=== PATIENT | female | born 1945 | race Caucasian/White ===

== ENCOUNTER 2016-08-23 09:44 | Inpatient (IN) ==
[2016-08-23] MEDS ORDERED: CeFAZolin Pre 2,000 MG/100 ML 2,000 MG/100 ML BAG IVPB ONE (10:04)
[2016-08-23] MEDS ORDERED: Albuterol 2.5 MG/3 ML NEBULIZER IH ONE (10:04)
[2016-08-23] MEDS ORDERED: Vancomycin 1,250 MG in D5% in Water 250 ML IVPB ONE (10:04)
[2016-08-23] MEDS ORDERED: Ringers Solution, Lactated 1,000 ML IVC SCH (10:15)
--- NOTE | 2016-08-23 10:45 | Anesthesia Evaluation PreOp ---
Date of Encounter: 08/23/16 Time of Encounter: 10:42 - Past History Planned Operation: endo AAA Cardiac History: NV (prior NV suggested on stress test), HTN, Other (has TAA and AAA. Poor functional capacity <4 METS) Pulmonary History: Smoker, COPD (on home oxygen) PULMONOLOGIST INTENSIVIST History: Denies Any Significant HX Other Medical History: Renal (CRI) Anesthesia History: No Prior Anesthetic Complications, Past Anesthesia (TOMY) : No Alcohol Use: none Drug use: none Medications and Allergies Allopurinol [Zyloprim 300 MG] 300 mg PO DAILY 08/23/16 [History] Aspirin 81 mg PO DAILY 08/23/16 [History] Calcium Carbonate [Calcium] 500 mg PO DAILY 08/23/16 [History] Cholecalciferol (D-3) [Vitamin D] 1,000 unit PO DAILY 08/23/16 [History] Duloxetine [Cymbalta] 20 mg PO DAILY 08/23/16 [History] Fluticasone Propionate Nasal [Flonase] 1 spr NS DAILY 08/23/16 [History] Furosemide [Lasix] 20 mg PO DAILY 08/23/16 [History] Levocetirizine Dihydrochloride [Xyzal] 5 mg PO HS 08/23/16 [History] Linaclotide [Linzess] 145 mcg PO DAILY 08/23/16 [History] Lisinopril 2.5 mg PO DAILY 08/23/16 [History] Metoprolol [Lopressor] 25 mg PO BID 08/23/16 [History] Multivit-Minerals/Folic/Ginkgo [One Daily For Women 50+ Adv Tb] 1 each PO DAILY 08/23/16 [History] Pravastatin Sodium [Pravachol] 20 mg PO HS 08/23/16 [History] Allergies No Known Allergies Allergy (Verified 08/23/16 10:27) - Meds/Allergy Pre-op Review Medications Reviewed: Yes Allergies Reviewed: Yes Beta Blockers on Current Med List: Yes If Beta Blockers taken, Date/Time (Last Dose taken): today at 0530 Anesthesia Results - Labs Laboratory Tests 08/21/16 08/21/16 08/21/16 14:56 14:56 14:56 Hgb 13.1 Hct 41.1 Plt Count 241 PT 11.3 INR 1.0 APTT 35.1 Sodium 139 Potassium 4.2 BUN 36 H Creatinine 1.57 H - Imaging EKG: report reviewed (sinus edgar, old inferior NV.) Additional studies: nuclear stress shows EF64%, no to minimal ischemia. Patient cleared by Cardiology. Anesthesia Exam Selected Entries 08/23/16 10:13 Temperature 98.0 F Pulse Rate 83 Respiratory Rate 18 Blood Pressure 130/84 O2 Sat by Pulse Oximetry 97 Height: 68in Weight: 179lbs NPO (# of Hours): 8 Pain Scale: 0 Pain Scale Used: Numeric (1 - 10) - HEENT Pupil (Motor): EOMI Mallampati: II Teeth: Edentulous Oral Opening: Greater than 3 - PULMONOLOGIST INTENSIVIST LOC: Oriented PULMONOLOGIST INTENSIVIST Motor: Normal RUE, Normal LUE, Normal RLE, Normal LLE, Normal Face PULMONOLOGIST INTENSIVIST Sensory: Normal: RUE, LUE, RLE, LLE, Face - Cardiac Rhythm: Regular Murmur: None - Pulmonary Breath Sounds: bilateral Clear Respiratory Effort: Symmetrical Anesthesia Assess/Plan ASA Score: 4 Modified [place] Scale for Level of Consciousness: Cooperative, oriented, and tranquil Anesthetic Plan: General Monitoring Plan: Standard Monitors, A-Line Recovery Plan: ICU (Discussed her high risk status due to multiple medical issues. She is aware of risks including but not limited to prolonged intubation , worsening renal function, NV, CVA and need for open procedure. Patient aware she may need ICU and/or blood products. Patient aware she needs arterial line and associated risks. Agrees to proceed.)
[2016-08-23] MEDS ORDERED: *HR* FentaNYL (PF) 100 MCG/2 ML VIAL ONE ×2 (11:26→15:44)
[2016-08-23] MEDS ORDERED: *HR* Phenylephrine 10 MG/ML VIAL ONE (11:27)
[2016-08-23] MEDS ORDERED: *HR* Propofol 200 MG/20 ML VIAL IVP ONE (11:27)
[2016-08-23] MEDS ORDERED: *HR* Rocuronium Bromide 50 MG/5 ML VIAL ONE ×2 (11:27→13:23)
[2016-08-23] MEDS ORDERED: Ondansetron 4 MG/2 ML VIAL ONE (11:27)
[2016-08-23] MEDS ORDERED: *HR* Midazolam HCl 2 MG/2 ML VIAL ONE (11:27)
[2016-08-23] MEDS ORDERED: Lidocaine -MPF 2% 2 ML VIAL ONE ×2 (11:27→12:30)
[2016-08-23] MEDS ORDERED: Dexamethasone 4 MG/ML VIAL ONE (11:27)
[2016-08-23] MEDS ORDERED: *HR* Metoprolol 5 MG/5 ML VIAL IVP PRN (11:41)
[2016-08-23] MEDS ORDERED: *HR* HYDROmorphone (PF) 1 MG/ML SYRINGE IVP PRN (11:41)
[2016-08-23] MEDS ORDERED: *HR* Promethazine 25 MG/ML VIAL IVP PRN ×2 (11:41→16:49)
[2016-08-23] MEDS ORDERED: Heparin 1,000 UNITS/500 mL NS 0 ML ONE (11:44)
--- NOTE | 2016-08-23 12:21 | History & Physical Report ---
Date of Encounter: 08/23/16 Time of Encounter: 12:15 24 Hour HP Update - Instructions Instructions: If the History and Physical is less than 30 days old and was completed prior to A.M. admission and or procedure and has NOT been updated on calendar day of procedure please complete this update prior to performing procedure. - Update Patient reports changes in Medical Condition: No Changes in assessment/condition: No Changes in Medication: No Preop tests/diagnostics Reviewed: Yes Surgery Remains Indicated: Yes Consent for Planned Operative Procedure(s) Verified: Yes - Pre-Operative Checklist Preoperative Checklist Indicated: Yes Prophylactic Antibiotic Ordered: Yes (Vancomycin due to MRSA risk) Home Medications Include Beta Taisha: Yes Beta Taisha Taken Today (Day of Surgery): Yes Beta Taisha Taken Yesterday (Day Prior to Surgery): Yes Is VTE Prophylaxis Indicated?: Yes
[2016-08-23] MEDS ORDERED: Vancomycin 1,000 MG VIAL ONE (12:23)
[2016-08-23] MEDS ORDERED: SODIUM CHLORIDE ONE (12:23)
[2016-08-23] MEDS ORDERED: HEPARIN 1000 UNIT/500 ML ONE (12:23)
[2016-08-23] MEDS ORDERED: *HR* Heparin 5,000 UNIT/ML VIAL ONE ×2 (13:56→14:12)
[2016-08-23] MEDS ORDERED: Neostigmine Methylsulfate 3 MG/3 ML SYRINGE ONE (15:38)
[2016-08-23] MEDS ORDERED: Esmolol 100 MG/10 ML VIAL IVP ONE (15:46)
--- NOTE | 2016-08-23 16:14 | Operative Note ---
Date of procedure: 08/23/16 Pre-op diagnosis: 5.5cm Abdominal aortic aneurysm Post-op diagnosis: same Procedure: 1. Introduction of catheter into the aorta via right common femoral artery. 2. Introduction of catheter into the aorta via left common femoral artery. 3. Right femoral vessel exposure for endograft placement. 4. Left femoral vessel exposure for endograft placement. 5. Endograft repair of abdominal aortic aneurysm with Cook Zenith graft and two docking limbs including radiologic supervision and interpretation. Complications: None Anesthesia: JESUS Surgeon: Oscar Martinez Window Installation Subcontractor: Julio Bennett Estimated blood loss (cc): 100 Urine output (cc): 400 Condition: stable Disposition: PACU Procedure in Detail: Indications: The patient is a 71 year old female with multiple medical comorbidities who was found to have a 5.5cm infrarenal aortic aneurysm. It had a significant increase in size and repair was recommended. Procedure: The patient was identified, brought to the operating room and placed in the supine position on the operating room table. After induction of general endotracheal anesthesia, the patient was cleaned and draped in normal sterile fashion. Oblique incisions were made over both groins sharply. Hemostasis was obtained with electrocautery. Using blunt and sharp and electrocautery dissection, the bilateral common, deep and superficial femoral arteries were dissected circumferentially and surrounded with Vesseloops. At this point, the patient received 5000 units of heparin intravenously and then bilateral femoral punctures with large-bore needles were performed. Bentson wires were advanced into the aorta under fluoroscopic view. Given the anatomy, the main body was selected to be the left side of the patient. The needles were exchanged for bilateral #8-Congolese sheaths and a long Pigtail catheter was advanced over the left wire into the aortic arch. The wire was replaced with a Lunderquist wire. The catheter was removed and repositioned in the suprarenal aorta via the left femoral artery. The main body was inserted over the Lunderquist wire with the contralateral limb being in the anterolateral position. An aortogram was then performed at the level of the renal artery. The graft was positioned just inferior to the renal arteries and the first 2 segments were deployed. Again an aortogram revealed adequate infrarenal placement. The graft was then further opened to the contralateral limb exposed. A final angiogram was performed confirming adequate infrarenal placement. The suprarenal stent was deployed in the usual fashion. The contralateral limb was then selected with a Bentson wire using a guiding catheter. Intragraft placement of the wire was confirmed by placing the pigtail and spinning it freely as well as injecting a small amount of contrast. An oblique view of the pelvis was performed with contrast to size the right extension limb. The #8-Congolese sheath was removed and exchanged for the appropriate limb, which was advanced under fluoroscopic view and positioned. It was then expanded. The introducer was removed. The remaining portion of the main body was deployed, the top cap was retrieved and the introducer was removed. An oblique view of the right pelvis was performed in a similar fashion to determine the length of the graft on the left. The graft extension was then advanced on the right and positioned in the usual fashion. Upon completion of the graft docking limb extension, the introducer was removed. A Coda balloon was then advanced into the graft proximal and distal endpoints as well as overlap were expanded with gentle pressure. The balloon was left in the suprarenal position and a Flush catheter was placed in the suprarenal aorta. A Flush completion angiogram revealed an late endoleak arising at the level of the birfurcation. The left extensino limb was then reinflated using the Coda balloon. A retrograde angiogram revealed no retrograde endoleak at abrahan left limb. Tension was applied to the Vesseloops in the groin. The bilateral sheaths were then removed. After confirming hemodynamic stability, the wires were then removed. The bilateral arteriotomies were repaired with a running 6-0 Prolene. Antibiotic irrigation was infused into the groin. Platelet rich and platelet poor plasma were infused into the incisions. The bilateral groins were closed with a single layer of 2-0 Vicryl followed by two layers of 3-0 Vicryl followed by a layer of 3-0 monocryl in the subcuticular region. Sterile dressings were applied. The patient was then extubated and taken to the recovery room in stable condition. DEVICE SIZES: 1. Main body, 30 x 111. 2. Contralateral leg, 24 x 56. 3. Ipsilateral leg, 24 x 74.
--- NOTE | 2016-08-23 16:37 | Anesthesia Evaluation Post Op ---
Date of Encounter: 08/23/16 Time of Encounter: 16:36 - Vital Signs Vital Signs: Vital Signs/O2 Sat, Most Current Temp Pulse Resp BP Pulse Ox 97.8 F 78 14 141/85 91 L 08/23/16 16:12 08/23/16 16:32 08/23/16 16:32 08/23/16 16:22 08/23/16 16:32 - Lungs Lungs: Clear Ascult./Percussion - Airway Airway: Non-obstructed - Cardiovascular Regular Rate - Mental Status Mental Status: Alert & Oriented, Answers Appropriately - Pain Pain Scale: 2 Pain Scale used: Numeric (1 - 10) - Nausea Vomiting Nausea Vomiting: Not Present - Hydration Hydration: Ice chips, [place] catheter - Discharge PostOp Status: Transfer Patient to floor
[2016-08-23] MEDS ORDERED: *HR* Labetalol 20 MG/4 ML SYRINGE IVP PRN (16:49)
[2016-08-23] MEDS ORDERED: 0.9 % Sodium Chloride 1,500 ML IVC SCH (16:49)
[2016-08-23] MEDS ORDERED: Naloxone 0.4 MG/ML INJ IVP PRN ×2 (16:49)
[2016-08-23] MEDS ORDERED: *HR* HYDROcodone/Acet 5/325 mg TABLET PO PRN (16:49)
[2016-08-23] MEDS ORDERED: Acetaminophen 325 MG TABLET PO PRN (16:49)
[2016-08-23] MEDS: *HR* Morphine 2 MG/ML SYRINGE IVP PRN ×2 (17:01→20:53)
[2016-08-23] MEDS: *HR* OxyCODONE Immed Rel 5 MG TABLET PO PRN ×2 (17:16→20:53)
[2016-08-23] MEDS: Ondansetron 4 MG/2 ML VIAL IVP PRN (17:17)
[2016-08-23] MEDS: *HR* Metoprolol 5 MG/5 ML VIAL IVP SCH (18:17)
[2016-08-23] MEDS: CeFAZolin Pre 2,000 MG/100 ML 2,000 MG/100 ML BAG IVPB SCH (18:34)
[2016-08-23] MEDS ORDERED: Loratadine 10 MG TABLET PO SCH (21:00)
--- NOTE | 2016-08-23 21:43 | Operative Note ---
Date of procedure: 08/23/16 Pre-op diagnosis: AAA Post-op diagnosis: same Procedure: Endovascular repair of infrarenal abdominal aortic aneurysm using modular bifurcated prosthesis (2 docking limbs-Cook Zenith system) Open femoral exposure, bilaterally. Nonselective catheterizations of the aorta with multiple aortograms. Anesthesia: GETA Surgeon: Oscar Martinez Co-Surgeon: Julio Bennett Estimated blood loss (cc): 100 Specimen: None Condition: stable Disposition: PACU Procedure in Detail: Ritika Guzman is a 71-year-old white female with a abdominal aortic aneurysm. Patient's aneurysm also has led to significant tortuosity of the abdominal aorta. The patient now comes for endovascular repair of this lesion. Procedure After informed consent the patient was taken from the holding area to the operating room. General endotracheal anesthesia was established. The abdomen, groins, and upper thighs were sterilely prepped and draped. A timeout protocol was observed. A 2 team approach was utilized for this procedure due to the patient's comorbid conditions. It was also needed because of intraoperative complex decision making and the need to minimize complications due to blood loss and prolonged anesthetic time. The femoral arteries were then dissected simultaneously and exposed and controlled with vessel loops. An 18-gauge needle was used on both sides to puncture the artery retrograde. A guidewire was then inserted and this was followed by an 8 [place]ian sheath and dilator. The dilator was removed and the sheath was aspirated and flushed. Systemic heparinization was then achieved using intravenous heparin. The guidewires were then manipulated under fluoroscopic control into the proximal descending thoracic aorta. It was elected to perform this procedure with the main body via the left side. Guidewires were then inserted and exchanged for a Lunderquist wire bilaterally. The pigtail catheter was placed via the right side in the main body was placed via the left side. An aortogram was obtained to identify the renal artery orifices. The patient had significant tortuosity though this was significantly improved with the use of the stiff wires. The graft was partially deployed and then another angiogram obtained in order to ensure that the renal artery orifices were preserved. With this done the suprarenal fixation was achieved and the main body was deployed so that the docking limb to the right side was now exposed. Attention was then directed to the right side. A wire was then selectively cannulated into the right limb. Appropriate position of the wire was confirmed by the use of contrast injection. With this done the right iliac limb was selected and this was a 24 x 56 mm Spiral Z limb. This was deployed into the right limb and into the right distal common iliac artery with preservation of the right iliac bifurcation. With this accomplished attention was then directed back towards the main body on the left side. The top cap was then recaptured and the left-sided main body was completely deployed. A repeat anterior was entered obtained of the aorta and left iliac system. A 24 x 74 mm Spiral Z Limb was then identified as the appropriate conduit to place into the left iliac system. This device was then deployed with maximal proximal stent overlap. There was also overlap of the left iliac bifurcation but the internal iliac artery remained patent. A Coda balloon was then placed into the stent graft first from the left side done from the right. This was gently inflated so that the stent graft was fully deployed at its fixation sites and overlap sites of the stent grafts. The guidewire was then used and a pigtail catheter was advanced over the wire and placed into the supra renal aorta. A completion aortogram was then obtained. This demonstrated a probable late Type 2 endoleak near the flow divider. With all other aspects satisfactory the wires and catheters were removed. The femoral puncture sites were closed using 6-0 Prolene suture. After appropriate backbleeding and flushing the limbs are open. The patient had no hemodynamic distress with this maneuver. Excellent pulsations and Doppler signals were identified. They groin wounds were then copiously irrigated with antibiotic containing solution and hemostasis was achieved. The wounds were closed in layers using absorbable suture. Dry sterile dressings were then applied. The patient was extubated in the operating room and taken to the recovery room in stable condition.
[2016-08-24] MEDS: CeFAZolin Pre 2,000 MG/100 ML 2,000 MG/100 ML BAG IVPB SCH (05:12)
[2016-08-24] MEDS: *HR* Morphine 2 MG/ML SYRINGE IVP PRN (05:13)
[2016-08-24] MEDS: *HR* Metoprolol 5 MG/5 ML VIAL IVP SCH ×2 (05:24)
[2016-08-24 05:31] LABS: Basophils % 0.1 %; Hematocrit 33.8 % (35.3-44.9); Immature Granulocytes % 0.4 % (0-4); Lymphocytes # 1.5 K/mcL (0.6-4.6); Mean Corpuscular HGB Conc 31.4 g/dL (31.6-35.5); Mean Corpuscular Hemoglobin 31.3 pg (28.0-33.3); Mean Corpuscular Volume 99.7 fL (83.0-100.0); Mean Platelet Volume 9.4 fL (9.4-12.4); Monocytes # 0.6 K/mcL (0.0-1.3); Monocytes % 6.6 %; Neutrophils # 6.4 K/mcL (1.6-8.9); Platelet Count 183 K/mcL (140-400); Red Blood Count 3.39 M/mcL (3.82-4.97); Red Cell Distribution Width 12.9 % (11.5-14.5); Segmented Neutrophils % 74.9 %
[2016-08-24 05:32] LABS: Hemoglobin 10.6 g/dL (11.5-15.4)
[2016-08-24 05:43] LABS: Calcium 8.3 mg/dL (8.6-10.8); Potassium 4.2 mEq/L (3.5-4.5)
[2016-08-24] MEDS ORDERED: *HR* Heparin 5,000 UNIT/ML VIAL SQ SCH ×2 (06:00)
--- NOTE | 2016-08-24 08:04 | Discharge Summary ---
Date of Encounter: 08/24/16 Time of Encounter: 08:10 - Discharge Diagnosis (1) AAA (abdominal aortic aneurysm) without rupture Priority: Primary Status: Chronic Comments: The patient is postoperative day #1 after endograft repair of her aortic aneurysm. She is without complaints and her wounds are healing. She will be discharged today. (2) CKD (chronic kidney disease), stage III Priority: Secondary Status: Chronic Comments: Her GFR is improved from her baseline. She is making good urine. (3) Essential hypertension Priority: Secondary Status: Chronic Comments: She was counseled regarding atherosclerotic risk factor reduction. (4) Mixed hyperlipidemia Priority: Secondary Status: Chronic (5) Acute blood loss anemia Priority: Secondary Status: Acute Comments: The patient has acute expected postoperative blood loss anemia. She is hemodynamically stable without evidence of ongoing blood loss. - Discharge Medications Prescriptions: OxyCODONE Immed Rel [Roxicodone 5 MG] 5 mg PO Q4H PRN #40 tablet PRN Reason: postoperative pain Home Medications: Allopurinol [Zyloprim 300 MG] 300 mg PO DAILY 08/23/16 [History] Aspirin 81 mg PO DAILY 08/23/16 [History] Calcium Carbonate [Calcium] 500 mg PO DAILY 08/23/16 [History] Cholecalciferol (D-3) [Vitamin D] 1,000 unit PO DAILY 08/23/16 [History] Duloxetine [Cymbalta] 20 mg PO DAILY 08/23/16 [History] Fluticasone Propionate Nasal [Flonase] 1 spr NS DAILY 08/23/16 [History] Furosemide [Lasix] 20 mg PO DAILY 08/23/16 [History] Levocetirizine Dihydrochloride [Xyzal] 5 mg PO HS 08/23/16 [History] Linaclotide [Linzess] 145 mcg PO DAILY 08/23/16 [History] Lisinopril 2.5 mg PO DAILY 08/23/16 [History] Metoprolol [Lopressor] 25 mg PO BID 08/23/16 [History] Multivit-Minerals/Folic/Ginkgo [One Daily For Women 50+ Adv Tb] 1 each PO DAILY 08/23/16 [History] Pravastatin Sodium [Pravachol] 20 mg PO HS 08/23/16 [History] OxyCODONE Immed Rel [Roxicodone 5 MG] 5 mg PO Q4H PRN #40 tablet 08/24/16 [Rx] Allergies/Adverse Reactions: Allergies No Known Allergies Allergy (Verified 08/23/16 10:27) Date of admission: 08/23/16 16:47 Primary care physician: Niru Yo MD Procedure(s) Performed: Endograft repair of abdominal aortic aneurysm Discharging clinician: Oscar Martinez Anticipated date of discharge: 08/24/16 - Patient Status Disposition: Home, Self-Care Condition: Good Functional capacity at discharge: independent ambulation Overall status at discharge: patient is back to baseline - Discharge Instructions Instructions: Oxycodone, Rapid Release (By mouth), Heart Healthy Diet (DC), Peripheral Vascular Disorders (DC) Follow Up With: Oscar Martinez MD [Partnered Physician] - 09/24/16 1:00 pm Niru Yo MD [Primary Care Provider] - 08/28/16 8:20 am Additional Instructions: May remove bandages and shower on 08/25/16. Wash wounds gently and pat to dry. Apply dry gauze to wounds daily for 7 days. No tub baths or swimming until 09/12/16. Call [phone] with questions or concerns. - Diet and Activity Activity: increase activity as tolerated Diet: advance to your usual diet - Hospital Course Hospital course: Ms. Guzman is a 71 year old female has a history of an abdominal aortic aneurysm. She was admitted on 08/23/16 and underwent endograft repair of her aneurysm. She tolerated the procedure well and was discharged on postoperative day #1 without complications. - Time Spent with Patient Total time spent providing and/or coordinating discharge services: Exam Vital Signs, Last 4 Hours Temp Pulse Resp BP Pulse Ox 08/24/16 07:52 98.3 F 65 18 121/64 95 08/24/16 05:47 98.4 F 93 18 98/51 92 L 08/24/16 05:00 70 General: Present: Conversant, No Apparent Distress HEENT: Present: Pupils equal Cardiac: Present: Reg Rate and Rhythm Lungs: Present: Normal Breath Sounds Neuro: Present: Alert and responsive, No focal deficits noted Abdomen: Present: Soft, Non-tender. Absent: Masses Vascular: Present: Surgical incisions (no hematoma, clean, dry and intact). Absent: Cyanosis, Edema - VTE Documentation of Mechanical Device: Intermittent pneumatic compression device
[2016-08-24] MEDS: Ondansetron 4 MG/2 ML VIAL IVP PRN (08:25)
[2016-08-24] MEDS ORDERED: Cholecalciferol (D-3) 1,000 UNIT TABLET PO SCH (09:00)
[2016-08-24] MEDS ORDERED: Multivit/Ca/Min/Fe/FA 1 TAB TABLET PO SCH (09:00)
[2016-08-24] MEDS ORDERED: (Linaclotide [Linzess] 145 MCG) PO SCH (09:00)
[2016-08-24] MEDS ORDERED: Furosemide 20 MG TABLET PO SCH (09:00)
[2016-08-24] MEDS ORDERED: Aspirin 81 MG TAB.CHEW PO SCH (09:00)
[2016-08-24] MEDS ORDERED: Fluticasone Propionate Nasal 50 MCG/SPRAY BOTTLE NS SCH (09:00)
[2016-08-24 11:57] VITALS: BP 113/67
[2016-08-24] MEDS ORDERED: CeFAZolin Pre 2,000 MG/100 ML 2,000 MG/100 ML BAG IVPB SCH (19:00)
== END 2016-08-24 12:50 | disposition home or self-care (01) | DRG 269 ==
LOC: SAMDAY 09:44 → 2NNU 16:47
PROVIDERS: ADMIT Surgery; ATTEND Surgery

== ENCOUNTER 2020-11-16 13:24 | Inpatient (IN) ==
[2020-11-16] MEDS ORDERED: Morphine Sulfate 2 MG/ML SYRINGE IVP STA (18:24)
[2020-11-16] MEDS ORDERED: Naloxone 0.4 MG/ML INJ IVP PRN (19:29)
[2020-11-16] MEDS ORDERED: 0.9 % Sodium Chloride 1,000 ML IVC SCH (19:30)
[2020-11-16] MEDS: Acetaminophen 325 MG TABLET PO PRN (20:16)
[2020-11-16] MEDS: Nicotine 14 MG PATCH.TD24 TD SCH (20:16)
[2020-11-16] MEDS ORDERED: Morphine Sulfate 2 MG/ML SYRINGE IVP ONE (20:21)
[2020-11-16] MEDS ORDERED: Perflutren Lipid Microsphere 1.3 ML in 0.9 % Sodium Chloride 8.7 ML IVP PRN (21:04)
[2020-11-17 01:04] LABS: Basophils % 0.4 %; Hematocrit 33.8 % (35.3-44.9); Hemoglobin 10.6 g/dL (11.5-15.4); Immature Granulocytes % 0.4 % (0-4); Lymphocytes # 1.3 K/mcL (0.6-4.6); Lymphocytes % 17.2 %; Mean Corpuscular HGB Conc 31.4 g/dL (31.6-35.5); Mean Corpuscular Hemoglobin 31.6 pg (28.0-33.3); Mean Corpuscular Volume 100.9 fL (83.0-100.0); Mean Platelet Volume 10.3 fL (9.4-12.4); Monocytes # 0.6 K/mcL (0.0-1.3); Monocytes % 8.4 %; Neutrophils # 5.6 K/mcL (1.6-8.9); Platelet Count 156 K/mcL (140-400); Red Blood Count 3.35 M/mcL (3.82-4.97); Red Cell Distribution Width 13.2 % (11.5-14.5); Segmented Neutrophils % 73.6 %; White Blood Count 7.6 K/mcL (4.3-11.1)
[2020-11-17 01:11] LABS: INR 1.1; Prothrombin Time 12.3 Seconds (9.4-12.1)
[2020-11-17 01:14] LABS: Activated Partial Thrombo Time 33.1 Seconds (26.0-36.0)
[2020-11-17 01:36] LABS: Albumin 3.4 g/dL (3.5-5.7); Albumin/Globulin Ratio 1.4 (1.1-2.2); Bilirubin,Total 0.5 mg/dL (0.3-1.0); Calcium 8.1 mg/dL (8.6-10.3); Globulin 2.5 g/dL (2.4-3.5); Magnesium 1.8 mg/dL (1.6-2.6); Potassium 3.9 mEq/L (3.5-5.1); Total Protein 5.9 g/dL (6.4-8.9); Troponin I 0.04 ng/mL (< 0.04)
[2020-11-17] MEDS: Aspirin 81 MG TAB.CHEW PO SCH (08:31)
[2020-11-17] MEDS: Nicotine 14 MG PATCH.TD24 TD SCH (08:31)
[2020-11-17] MEDS: BuPROPion SR (12 HR) 150 MG TABLET PO SCH ×2 (13:10→21:07)
[2020-11-17] MEDS: carvediloL 6.25 MG TABLET PO SCH (16:38)
[2020-11-17] MEDS: Furosemide 20 MG TABLET PO SCH (16:38)
[2020-11-17] MEDS ORDERED: carvediloL 6.25 MG TABLET PO SCH (17:00)
[2020-11-17] MEDS: Budesonide/Formoterol 80/4.5 1 PUFF INH IH SCH (20:40)
[2020-11-17] MEDS: Acetaminophen 325 MG TABLET PO PRN (21:06)
[2020-11-18 01:10] LABS: Basophils % 0.4 %; Eosinophils % 0.1 %; Hematocrit 32.2 % (35.3-44.9); Hemoglobin 10.3 g/dL (11.5-15.4); Immature Granulocytes % 0.3 % (0-4); Lymphocytes % 13.3 %; Mean Corpuscular Hemoglobin 31.8 pg (28.0-33.3); Mean Corpuscular Volume 99.4 fL (83.0-100.0); Mean Platelet Volume 10.8 fL (9.4-12.4); Monocytes # 0.6 K/mcL (0.0-1.3); Monocytes % 7.9 %; Neutrophils # 5.7 K/mcL (1.6-8.9); Platelet Count 136 K/mcL (140-400); Red Blood Count 3.24 M/mcL (3.82-4.97); Red Cell Distribution Width 13.3 % (11.5-14.5); White Blood Count 7.4 K/mcL (4.3-11.1)
[2020-11-18 01:30] LABS: Calcium 8.2 mg/dL (8.6-10.3); Potassium 4.3 mEq/L (3.5-5.1)
[2020-11-18] MEDS: Nicotine 14 MG PATCH.TD24 TD SCH (07:23)
[2020-11-18] MEDS: Aspirin 81 MG TAB.CHEW PO SCH (07:27)
[2020-11-18] MEDS: BuPROPion SR (12 HR) 150 MG TABLET PO SCH ×2 (07:27→20:23)
[2020-11-18] MEDS: Multivit/Ca/Min/Fe/FA 1 TAB TABLET PO SCH (07:27)
[2020-11-18] MEDS: allopurinoL 100 MG TABLET PO SCH (07:27)
[2020-11-18] MEDS: FLUoxetine 20 MG CAPSULE PO SCH (07:28)
[2020-11-18] MEDS: Furosemide 20 MG TABLET PO SCH (07:28)
[2020-11-18] MEDS: carvediloL 6.25 MG TABLET PO SCH ×2 (07:28→17:08)
[2020-11-18] MEDS ORDERED: Lidocaine -MPF 2% 2 ML VIAL ONE (11:21)
[2020-11-18] MEDS ORDERED: *HR* FentaNYL (PF) 100 MCG/2 ML VIAL ONE (11:21)
[2020-11-18] MEDS ORDERED: Lidocaine HCL 4 ML Topical Solution (Laryng-O-Jet Kit Sterile Pak) TP ONE (11:21)
[2020-11-18] MEDS ORDERED: *HR* Propofol 200 MG/20 ML VIAL IVP ONE (11:21)
[2020-11-18] MEDS ORDERED: Heparin 1,000 UNITS/500 mL 500 ML ONE (11:21)
[2020-11-18] MEDS ORDERED: *HR* Rocuronium Bromide 50 MG/5 ML VIAL ONE (11:21)
[2020-11-18] MEDS ORDERED: *HR* Succinylcholine 200 MG/10 ML VIAL IVP ONE (11:21)
[2020-11-18] MEDS ORDERED: Ondansetron 4 MG/2 ML VIAL ONE (11:21)
[2020-11-18] MEDS ORDERED: *HR* Norepinephrine 4 MG/4 ML VIAL IVC ONE (11:28)
[2020-11-18] MEDS: Budesonide/Formoterol 80/4.5 1 PUFF INH IH SCH ×2 (11:37→22:17)
[2020-11-18] MEDS ORDERED: CeFAZolin Syr 2,000MG/20 ML 2,000 MG/20 ML SYRINGE IVPB ONE (12:24)
[2020-11-18] MEDS ORDERED: *HR* HYDROmorphone PF 0.5 MG/0.5 ML SYRINGE IVP PRN (12:26)
[2020-11-18] MEDS ORDERED: *HR* OxyCODONE Immed Rel 5 MG TABLET PO PRN (12:26)
[2020-11-18] MEDS ORDERED: Ondansetron 4 MG/2 ML VIAL IVP PRN (12:26)
[2020-11-18] MEDS ORDERED: TOTAL JOINT MIXTURE (100ML) INTRAART ONE (12:30)
[2020-11-18] MEDS ORDERED: Povidone-Iodine 45 ML, Sodium Chloride IRRigation 1,000 ML IR ONE (12:30)
[2020-11-18] MEDS ORDERED: ROPIVACAINE/PF/NS 0.25% 1 EACH SYRINGE INTRAART ONE ×2 (13:03→13:13)
[2020-11-18] MEDS ORDERED: Lidocaine 1% 20 ML MDV ONE (13:04)
[2020-11-18] MEDS ORDERED: Sugammadex Sodium 200 MG/2 ML VIAL IV ONE (14:20)
[2020-11-18] MEDS ORDERED: *HR* Etomidate 40 MG/20 ML VIAL IVP ONE (16:47)
[2020-11-19] MEDS: CeFAZolin 2 GM/120 ML BAG IVPB SCH ×2 (00:45→08:16)
[2020-11-19 01:23] LABS: Basophils % 0.2 %; Hematocrit 28.5 % (35.3-44.9); Hemoglobin 8.8 g/dL (11.5-15.4); Immature Granulocytes % 0.5 % (0-4); Lymphocytes # 1.1 K/mcL (0.6-4.6); Lymphocytes % 11.8 %; Mean Corpuscular HGB Conc 30.9 g/dL (31.6-35.5); Mean Corpuscular Hemoglobin 31.1 pg (28.0-33.3); Mean Corpuscular Volume 100.7 fL (83.0-100.0); Mean Platelet Volume 10.9 fL (9.4-12.4); Monocytes # 0.6 K/mcL (0.0-1.3); Monocytes % 7.2 %; Neutrophils # 7.1 K/mcL (1.6-8.9); Platelet Count 159 K/mcL (140-400); Red Blood Count 2.83 M/mcL (3.82-4.97); Red Cell Distribution Width 13.4 % (11.5-14.5); Segmented Neutrophils % 80.3 %; White Blood Count 8.9 K/mcL (4.3-11.1)
[2020-11-19 01:36] LABS: Uric Acid 7.7 mg/dL (2.3-7.6)
[2020-11-19 01:37] LABS: Potassium 4.3 mEq/L (3.5-5.1)
[2020-11-19 03:47] LABS: Hepatitis B Surface Antigen Nonreactive (Nonreactive)
[2020-11-19 04:16] LABS: Hepatitis B Core IgM Nonreactive (Nonreactive)
[2020-11-19 04:17] LABS: Hepatitis A Antibody IgM Nonreactive (Nonreactive)
[2020-11-19 04:18] LABS: Hepatitis C Virus Antibody Nonreactive (Nonreactive)
[2020-11-19 06:13] LABS: Bacteria,Urine Few per hpf (None-Few); Bilirubin,Urine Negative (Negative); Blood,Urine Large (Negative); Clarity,Urine Ex.Turbid (Clear); Color,Urine Yellow (Yellow); Glucose,Urine (UA) Normal (Normal); Ketones,Urine Negative (Negative); Leukocyte Esterase,Urine Large (Negative); Mucus,Urine Few per lpf (None-Few); Nitrite,Urine Negative (Negative); PH,Urine 5.5 pH Units (5.0-8.0); Protein,Urine 70 mg/dL (Neg-Trace); RBC,Urine TNTC per hpf (0-3); Renal Epithelial Cells,Urine Few per hpf (None-Few); Specific Gravity,Urine 1.018 (1.010-1.025); Squamous Epithelial Cell,Urine Few per hpf (None-Few); Urobilinogen,Urine Normal (Normal); WBC,Urine TNTC per hpf (0-3)
[2020-11-19 06:16] LABS: Protein/Creatinine Ratio,Urine 0.65 mg/mg (0.00-0.20); Sodium, Urine 31.2 mEq/L
[2020-11-19] MEDS: Multivit/Ca/Min/Fe/FA 1 TAB TABLET PO SCH (08:16)
[2020-11-19] MEDS: BuPROPion SR (12 HR) 150 MG TABLET PO SCH ×2 (08:16→21:31)
[2020-11-19] MEDS: Ondansetron 4 MG/2 ML VIAL IVP PRN ×2 (08:16→17:21)
[2020-11-19] MEDS: Aspirin 81 MG TAB.CHEW PO SCH (08:16)
[2020-11-19] MEDS: allopurinoL 100 MG TABLET PO SCH (08:16)
[2020-11-19] MEDS: FLUoxetine 20 MG CAPSULE PO SCH (08:17)
[2020-11-19] MEDS: Nicotine 14 MG PATCH.TD24 TD SCH (08:17)
[2020-11-19] MEDS: carvediloL 6.25 MG TABLET PO SCH ×2 (08:17→17:21)
[2020-11-19] MEDS: Budesonide/Formoterol 80/4.5 1 PUFF INH IH SCH ×2 (08:22→19:39)
[2020-11-19] MEDS: Furosemide 40 MG/4 ML VIAL IVP SCH ×3 (11:55→21:31)
[2020-11-19] MEDS: Albumin 25% 25gram/100mL 25 GM/100 ML IV.SOLN IVPB SCH ×2 (11:56→21:32)
[2020-11-19] MEDS ORDERED: cefTRIAXone 1,000 MG in Water for inj. (sterile) 20 ML IVP SCH (14:00)
[2020-11-19 15:46] LABS: Folate > 22.3 ng/mL (3.0-16.0); Vitamin B12 > 1500 pg/mL (250-1100)
[2020-11-19] MEDS ORDERED: Acetaminophen IV 1,000 MG/100 ML BAG IVPB ONE (22:36)
[2020-11-19] MEDS ORDERED: Prochlorperazine 10 MG/2 ML VIAL IVP PRN (22:37)
[2020-11-20 02:19] LABS: Basophils % 0.2 %; Eosinophils % 0.2 %; Hematocrit 24.3 % (35.3-44.9); Hemoglobin 7.5 g/dL (11.5-15.4); Immature Granulocytes % 0.5 % (0-4); Lymphocytes # 0.8 K/mcL (0.6-4.6); Lymphocytes % 11.7 %; Mean Corpuscular HGB Conc 30.9 g/dL (31.6-35.5); Mean Corpuscular Hemoglobin 30.7 pg (28.0-33.3); Mean Corpuscular Volume 99.6 fL (83.0-100.0); Mean Platelet Volume 10.8 fL (9.4-12.4); Monocytes # 0.6 K/mcL (0.0-1.3); Monocytes % 9.1 %; Neutrophils # 5.2 K/mcL (1.6-8.9); Platelet Count 152 K/mcL (140-400); Red Blood Count 2.44 M/mcL (3.82-4.97); Red Cell Distribution Width 13.4 % (11.5-14.5); Segmented Neutrophils % 78.3 %; White Blood Count 6.6 K/mcL (4.3-11.1)
[2020-11-20 02:37] LABS: Calcium 8.1 mg/dL (8.6-10.3); Potassium 4.5 mEq/L (3.5-5.1)
[2020-11-20 02:38] LABS: % Iron Saturation 7 % (15-50); Iron 12 mcg/dL (50-170); Transferrin 125 mg/dL (203-362)
[2020-11-20] MEDS: Furosemide 40 MG/4 ML VIAL IVP SCH (07:37)
[2020-11-20] MEDS: Furosemide 20 MG TABLET PO SCH (07:37)
[2020-11-20] MEDS: Multivit/Ca/Min/Fe/FA 1 TAB TABLET PO SCH (07:39)
[2020-11-20] MEDS: FLUoxetine 20 MG CAPSULE PO SCH (07:39)
[2020-11-20] MEDS: BuPROPion SR (12 HR) 150 MG TABLET PO SCH ×2 (07:40→21:34)
[2020-11-20] MEDS: Aspirin 81 MG TAB.CHEW PO SCH (07:40)
[2020-11-20] MEDS: allopurinoL 100 MG TABLET PO SCH (07:40)
[2020-11-20] MEDS: carvediloL 6.25 MG TABLET PO SCH ×2 (07:40→16:57)
[2020-11-20] MEDS: Albumin 25% 25gram/100mL 25 GM/100 ML IV.SOLN IVPB SCH (07:40)
[2020-11-20] MEDS: Nicotine 14 MG PATCH.TD24 TD SCH (07:41)
[2020-11-20 08:42] LABS: ABG Base Excess -2 mEq/L (-2 to 3); ABG HCO3 24 mEq/L (21-27); ABG Oxygen Saturation 94 % (95-98); ABG PCO2 46 mmHg (35-45); ABG PH 7.33 pH Units (7.32-7.45); ABG PO2 77 mmHg (85-104); ABG TCO2 25 mEq/L (20-26)
[2020-11-20] MEDS: Budesonide/Formoterol 80/4.5 1 PUFF INH IH SCH ×2 (08:47→19:56)
[2020-11-20] MEDS: Ipratropium/Albuterol Neb 3 ML IH SCH ×5 (08:49→23:30)
[2020-11-20] MEDS ORDERED: Ferumoxytol 510 MG in 0.9 % Sodium Chloride 100 ML IVPB ONE (11:17)
[2020-11-20] MEDS: Furosemide 20 MG/2 ML VIAL IVP ONE (12:16)
[2020-11-20] MEDS ORDERED: cefTRIAXone 1,000 MG in Water for inj. (sterile) 10 ML IVP SCH (14:00)
[2020-11-20 15:45] LABS: Bacteria,Urine Few per hpf (None-Few); Bilirubin,Urine Negative (Negative); Blood,Urine Small (Negative); Clarity,Urine Clear (Clear); Color,Urine Light-Yellow (Yellow); Glucose,Urine (UA) Normal (Normal); Ketones,Urine Negative (Negative); Leukocyte Esterase,Urine Small (Negative); Mucus,Urine Few per lpf (None-Few); Nitrite,Urine Negative (Negative); PH,Urine 5.5 pH Units (5.0-8.0); Protein,Urine 50 mg/dL (Neg-Trace); Specific Gravity,Urine 1.015 (1.010-1.025); Squamous Epithelial Cell,Urine Few per hpf (None-Few); Urobilinogen,Urine Normal (Normal)
[2020-11-20] MEDS: Piperacillin/Tazobactam 3.375 GM in 0.9 % Sodium Chloride Mini Bag 100 ML IVPB SCH (16:59)
[2020-11-20] MEDS ORDERED: Doxycycline 100 MG CAPSULE PO SCH (21:00)
[2020-11-21 01:00] LABS: Basophils % 0.1 %; Hematocrit 24.2 % (35.3-44.9); Hemoglobin 7.8 g/dL (11.5-15.4); Immature Granulocytes % 0.3 % (0-4); Lymphocytes # 0.6 K/mcL (0.6-4.6); Lymphocytes % 8.6 %; Mean Corpuscular HGB Conc 32.2 g/dL (31.6-35.5); Mean Corpuscular Volume 99.2 fL (83.0-100.0); Mean Platelet Volume 10.7 fL (9.4-12.4); Monocytes # 0.5 K/mcL (0.0-1.3); Monocytes % 7.7 %; Neutrophils # 5.6 K/mcL (1.6-8.9); Platelet Count 175 K/mcL (140-400); Red Blood Count 2.44 M/mcL (3.82-4.97); Red Cell Distribution Width 13.3 % (11.5-14.5); Segmented Neutrophils % 83.3 %; White Blood Count 6.7 K/mcL (4.3-11.1)
[2020-11-21 01:11] LABS: INR 1.1; Prothrombin Time 12.7 Seconds (9.4-12.1)
[2020-11-21 01:19] LABS: Calcium 8.4 mg/dL (8.6-10.3); Potassium 4.2 mEq/L (3.5-5.1)
[2020-11-21 01:30] LABS: Magnesium 2.3 mg/dL (1.6-2.6)
[2020-11-21 01:34] LABS: Troponin I 0.06 ng/mL (< 0.04)
[2020-11-21] MEDS ORDERED: Morphine Sulfate 2 MG/ML SYRINGE IVP ONE (01:49)
[2020-11-21] MEDS: Ipratropium/Albuterol Neb 3 ML IH SCH ×5 (04:00→20:07)
[2020-11-21] MEDS: Piperacillin/Tazobactam 3.375 GM in 0.9 % Sodium Chloride Mini Bag 100 ML IVPB SCH ×2 (06:13→17:56)
[2020-11-21] MEDS: Aspirin 81 MG TAB.CHEW PO SCH (09:26)
[2020-11-21] MEDS: Multivit/Ca/Min/Fe/FA 1 TAB TABLET PO SCH (09:26)
[2020-11-21] MEDS: allopurinoL 100 MG TABLET PO SCH (09:27)
[2020-11-21] MEDS: carvediloL 6.25 MG TABLET PO SCH ×2 (09:27→17:04)
[2020-11-21] MEDS: Nicotine 14 MG PATCH.TD24 TD SCH (09:27)
[2020-11-21] MEDS: BuPROPion SR (12 HR) 150 MG TABLET PO SCH ×2 (09:27→20:52)
[2020-11-21] MEDS: FLUoxetine 20 MG CAPSULE PO SCH (09:27)
[2020-11-21] MEDS: Budesonide/Formoterol 80/4.5 1 PUFF INH IH SCH ×2 (10:47→20:07)
[2020-11-21] MEDS ORDERED: 0.9 % Sodium Chloride 250 ML IVC SCH (11:30)
[2020-11-21] MEDS ORDERED: Furosemide 20 MG/2 ML VIAL IVP ONE (12:00)
[2020-11-21] MEDS ORDERED: E-Z-PAQUE (BARIUM SULF) SUSP 1 BOTTLE PO ONE (15:19)
[2020-11-21] MEDS ORDERED: E-Z-HD (BARIUM SULF) SUSPENSION PO ONE (15:19)
[2020-11-21] MEDS ORDERED: 0.9 % Sodium Chloride 250 ML ONE (16:43)
[2020-11-21] MEDS: Furosemide 20 MG/2 ML VIAL IVP ONE (17:05)
[2020-11-21] MEDS: Melatonin 3 MG TABLET PO PRN (22:55)
[2020-11-22] MEDS: Ipratropium/Albuterol Neb 3 ML IH SCH ×7 (00:22→23:28)
[2020-11-22 01:32] LABS: Basophils % 0.2 %; Eosinophils % 0.2 %; Hematocrit 27.6 % (35.3-44.9); Hemoglobin 8.6 g/dL (11.5-15.4); Immature Granulocytes % 0.3 % (0-4); Lymphocytes # 0.6 K/mcL (0.6-4.6); Mean Corpuscular HGB Conc 31.2 g/dL (31.6-35.5); Mean Corpuscular Hemoglobin 30.7 pg (28.0-33.3); Mean Corpuscular Volume 98.6 fL (83.0-100.0); Mean Platelet Volume 10.5 fL (9.4-12.4); Monocytes # 0.5 K/mcL (0.0-1.3); Monocytes % 8.4 %; Platelet Count 216 K/mcL (140-400); Red Cell Distribution Width 13.7 % (11.5-14.5); Segmented Neutrophils % 81.9 %; White Blood Count 6.1 K/mcL (4.3-11.1)
[2020-11-22 01:53] LABS: Calcium 8.6 mg/dL (8.6-10.3); Potassium 3.7 mEq/L (3.5-5.1)
[2020-11-22] MEDS: Ondansetron 4 MG/2 ML VIAL IVP PRN ×2 (02:02→09:55)
[2020-11-22] MEDS: *HR* Metoprolol 5 MG/5 ML VIAL IVP PRN (02:30)
[2020-11-22] MEDS ORDERED: Vancomycin 500 MG in 0.9 % Sodium Chloride Mini Bag 100 ML IVPB ONE (06:00)
[2020-11-22] MEDS: Piperacillin/Tazobactam 3.375 GM in 0.9 % Sodium Chloride Mini Bag 100 ML IVPB SCH ×2 (06:44→16:55)
[2020-11-22] MEDS: Budesonide/Formoterol 80/4.5 1 PUFF INH IH SCH ×2 (07:34→19:24)
[2020-11-22] MEDS: Nicotine 14 MG PATCH.TD24 TD SCH (09:56)
[2020-11-22] MEDS: allopurinoL 100 MG TABLET PO SCH (09:56)
[2020-11-22] MEDS: Multivit/Ca/Min/Fe/FA 1 TAB TABLET PO SCH (09:56)
[2020-11-22] MEDS: BuPROPion SR (12 HR) 150 MG TABLET PO SCH ×2 (09:56→20:37)
[2020-11-22] MEDS: FLUoxetine 20 MG CAPSULE PO SCH (09:56)
[2020-11-22] MEDS: Aspirin 81 MG TAB.CHEW PO SCH (09:56)
[2020-11-22] MEDS ORDERED: 0.9 % Sodium Chloride 250 ML IVC PRN (09:58)
[2020-11-22] MEDS ORDERED: 0.9 % Sodium Chloride 1,000 ML PRIME SCH (10:00)
[2020-11-22] MEDS ORDERED: Lidocaine/EPI 1:100k 1% 50 ML VIAL ONE (12:21)
[2020-11-22] MEDS ORDERED: Heparin 1,000 UNITS/500 mL 500 ML ONE (12:21)
[2020-11-22] MEDS ORDERED: *HR* Heparin 5,000 UNIT/ML VIAL ONE (12:38)
[2020-11-22] MEDS ORDERED: *HR* Heparin 10,000 UNIT/10 ML VIAL ONE (15:19)
[2020-11-22] MEDS: Melatonin 3 MG TABLET PO PRN (20:37)
[2020-11-22 21:23] LABS: Alpha 2 Globulin (PEP) 0.94 g/dL (0.48-1.05); Beta Globulin (PEP) 0.61 g/dL (0.48-1.10)
[2020-11-23 01:41] LABS: Basophils % 0.3 %; Eosinophils % 0.4 %; Hematocrit 25.2 % (35.3-44.9); Immature Granulocytes % 0.4 % (0-4); Lymphocytes # 0.9 K/mcL (0.6-4.6); Lymphocytes % 11.5 %; Mean Corpuscular HGB Conc 31.7 g/dL (31.6-35.5); Mean Corpuscular Hemoglobin 31.1 pg (28.0-33.3); Mean Corpuscular Volume 98.1 fL (83.0-100.0); Mean Platelet Volume 10.4 fL (9.4-12.4); Monocytes # 0.7 K/mcL (0.0-1.3); Monocytes % 9.6 %; Neutrophils # 5.8 K/mcL (1.6-8.9); Platelet Count 213 K/mcL (140-400); Red Blood Count 2.57 M/mcL (3.82-4.97); Red Cell Distribution Width 14.3 % (11.5-14.5); Segmented Neutrophils % 77.8 %; White Blood Count 7.4 K/mcL (4.3-11.1)
[2020-11-23 01:55] LABS: Calcium 8.4 mg/dL (8.6-10.3); Potassium 3.6 mEq/L (3.5-5.1)
[2020-11-23 01:59] LABS: Troponin I 0.37 ng/mL (< 0.04)
[2020-11-23] MEDS: Ipratropium/Albuterol Neb 3 ML IH SCH ×6 (03:41→23:52)
[2020-11-23] MEDS: *HR* Metoprolol 5 MG/5 ML VIAL IVP PRN (05:41)
[2020-11-23] MEDS: Piperacillin/Tazobactam 3.375 GM in 0.9 % Sodium Chloride Mini Bag 100 ML IVPB SCH (05:42)
[2020-11-23] MEDS ORDERED: Vancomycin 500 MG in 0.9 % Sodium Chloride Mini Bag 100 ML IVPB ONE (06:00)
[2020-11-23] MEDS ORDERED: Ferumoxytol 510 MG in 0.9 % Sodium Chloride 100 ML IVPB ONE (07:17)
[2020-11-23] MEDS ORDERED: 0.9 % Sodium Chloride 250 ML IVC PRN (07:17)
[2020-11-23] MEDS: Budesonide/Formoterol 80/4.5 1 PUFF INH IH SCH ×2 (07:42→20:38)
[2020-11-23] MEDS ORDERED: *HR* Heparin 10,000 UNIT/10 ML VIAL ONE (10:52)
[2020-11-23 11:02] LABS: IFE Reflexed IFE Done; Immunoglobulin A 180 mg/dL (68-408); Immunoglobulin G 565 mg/dL (768-1632); Immunoglobulin M 70 mg/dL (35-263)
[2020-11-23] MEDS: Aspirin 81 MG TAB.CHEW PO SCH (12:32)
[2020-11-23] MEDS: allopurinoL 100 MG TABLET PO SCH (12:32)
[2020-11-23] MEDS: BuPROPion SR (12 HR) 150 MG TABLET PO SCH ×2 (12:32→20:45)
[2020-11-23] MEDS: Nicotine 14 MG PATCH.TD24 TD SCH (12:32)
[2020-11-23] MEDS: FLUoxetine 20 MG CAPSULE PO SCH (12:32)
[2020-11-23] MEDS: Multivit/Ca/Min/Fe/FA 1 TAB TABLET PO SCH (12:32)
[2020-11-23] MEDS ORDERED: Pantoprazole 40 MG VIAL IVP ONE (13:38)
[2020-11-23] MEDS ORDERED: Pantoprazole 80 MG in 0.9 % Sodium Chloride 50 ML IVPB ONE (14:02)
[2020-11-23] MEDS: Ondansetron 4 MG/2 ML VIAL IVP PRN (14:27)
[2020-11-23 15:01] LABS: Hematocrit 26.4 % (35.3-44.9); Hemoglobin 8.3 g/dL (11.5-15.4)
[2020-11-23 16:42] LABS: Adenovirus Not Detected (Not Detect); Bordetella Pertussis Not Detected (Not Detect); Chlamydophila pneumoniae Not Detected (Not Detect); Coronavirus 229E Not Detected (Not Detect); Coronavirus HKU1 Not Detected (Not Detect); Coronavirus NL63 Not Detected (Not Detect); Coronavirus OC43 Not Detected (Not Detect); Human Metapneumovirus Not Detected (Not Detect); Human Rhinovirus/Enterovirus Not Detected (Not Detect); Influenza A Subtype 2009 H1 Not Detected (Not Detect); Influenza B Not Detected (Not Detect); Mycoplasma pneumoniae Not Detected (Not Detect); Parainfluenza Virus 1 Not Detected (Not Detect); Parainfluenza Virus 2 Not Detected (Not Detect); Parainfluenza Virus 3 Not Detected (Not Detect); Parainfluenza Virus 4 Not Detected (Not Detect); Respiratory Syncytial Virus Not Detected (Not Detect); SARS-CoV-2 Not Detected (Not Detect)
[2020-11-23] MEDS: Pantoprazole 40 MG VIAL IVP SCH (17:24)
[2020-11-23] MEDS: Melatonin 3 MG TABLET PO PRN (20:45)
[2020-11-23] MEDS ORDERED: Haloperidol Lactate 5 MG/ML VIAL IM ONE (23:45)
[2020-11-24 03:59] LABS: Basophils % 0.2 %; Eosinophils % 0.1 %; Hematocrit 26.4 % (35.3-44.9); Hemoglobin 8.2 g/dL (11.5-15.4); Immature Granulocytes % 0.7 % (0-4); Lymphocytes # 0.8 K/mcL (0.6-4.6); Lymphocytes % 9.8 %; Mean Corpuscular HGB Conc 31.1 g/dL (31.6-35.5); Mean Corpuscular Hemoglobin 31.2 pg (28.0-33.3); Mean Corpuscular Volume 100.4 fL (83.0-100.0); Mean Platelet Volume 10.4 fL (9.4-12.4); Monocytes # 0.7 K/mcL (0.0-1.3); Monocytes % 8.6 %; Neutrophils # 6.6 K/mcL (1.6-8.9); Nucleated Red Blood Cells 0.2 /100 WBC (0); Platelet Count 229 K/mcL (140-400); Red Blood Count 2.63 M/mcL (3.82-4.97); Red Cell Distribution Width 14.3 % (11.5-14.5); Segmented Neutrophils % 80.6 %; White Blood Count 8.2 K/mcL (4.3-11.1)
[2020-11-24 04:07] LABS: Calcium 8.6 mg/dL (8.6-10.3); Potassium 3.6 mEq/L (3.5-5.1)
[2020-11-24] MEDS: Ipratropium/Albuterol Neb 3 ML IH SCH ×5 (04:10→20:15)
[2020-11-24] MEDS: Pantoprazole 40 MG VIAL IVP SCH ×2 (05:20→17:37)
[2020-11-24] MEDS ORDERED: Vancomycin 500 MG in 0.9 % Sodium Chloride Mini Bag 100 ML IVPB ONE (06:00)
[2020-11-24 07:08] LABS: Magnesium 1.9 mg/dL (1.6-2.6); Phosphorous 2.2 mg/dL (2.7-4.5)
[2020-11-24] MEDS: Budesonide/Formoterol 80/4.5 1 PUFF INH IH SCH ×2 (07:58→20:15)
[2020-11-24] MEDS: Nicotine 14 MG PATCH.TD24 TD SCH (08:07)
[2020-11-24] MEDS: FLUoxetine 20 MG CAPSULE PO SCH (08:07)
[2020-11-24] MEDS: Multivit/Ca/Min/Fe/FA 1 TAB TABLET PO SCH (08:07)
[2020-11-24] MEDS: Aspirin 81 MG TAB.CHEW PO SCH (08:07)
[2020-11-24] MEDS: allopurinoL 100 MG TABLET PO SCH (08:07)
[2020-11-24] MEDS: BuPROPion SR (12 HR) 150 MG TABLET PO SCH ×2 (08:07→23:10)
[2020-11-24] MEDS ORDERED: SODIUM CHLORIDE/NAHCO3/KCL/PEG 4,000 ML SOLN.RECON PO ONE (17:00)
[2020-11-24] MEDS: QUEtiapine Fumarate 25 MG TABLET PO SCH (17:37)
[2020-11-24] MEDS: Melatonin 3 MG TABLET PO PRN (23:10)
[2020-11-25] MEDS: Ipratropium/Albuterol Neb 3 ML IH SCH ×6 (00:18→20:15)
[2020-11-25] MEDS: Pantoprazole 40 MG VIAL IVP SCH ×2 (05:05→17:56)
[2020-11-25] MEDS: *HR* Metoprolol 5 MG/5 ML VIAL IVP PRN ×3 (05:05→15:35)
[2020-11-25 06:13] LABS: Basophils % 0.2 %; Eosinophils % 0.1 %; Hematocrit 27.9 % (35.3-44.9); Hemoglobin 8.8 g/dL (11.5-15.4); Immature Granulocytes % 0.6 % (0-4); Lymphocytes # 0.9 K/mcL (0.6-4.6); Lymphocytes % 8.8 %; Mean Corpuscular HGB Conc 31.5 g/dL (31.6-35.5); Mean Corpuscular Hemoglobin 31.8 pg (28.0-33.3); Mean Corpuscular Volume 100.7 fL (83.0-100.0); Mean Platelet Volume 10.5 fL (9.4-12.4); Monocytes # 0.8 K/mcL (0.0-1.3); Monocytes % 8.4 %; Nucleated Red Blood Cells 0.2 /100 WBC (0); Platelet Count 254 K/mcL (140-400); Red Blood Count 2.77 M/mcL (3.82-4.97); Red Cell Distribution Width 14.4 % (11.5-14.5); Segmented Neutrophils % 81.9 %; White Blood Count 9.8 K/mcL (4.3-11.1)
[2020-11-25 06:30] LABS: Calcium 9.1 mg/dL (8.6-10.3); Magnesium 2.1 mg/dL (1.6-2.6); Phosphorous 2.5 mg/dL (2.7-4.5); Potassium 3.9 mEq/L (3.5-5.1)
[2020-11-25] MEDS ORDERED: 0.9 % Sodium Chloride 250 ML IVC PRN (06:33)
[2020-11-25] MEDS ORDERED: Metoprolol XL (24 HR) Succ 25 MG TAB.ER.24H PO SCH (09:00)
[2020-11-25] MEDS: BuPROPion SR (12 HR) 150 MG TABLET PO SCH ×3 (09:26→22:05)
[2020-11-25] MEDS: QUEtiapine Fumarate 25 MG TABLET PO SCH ×2 (09:26→22:05)
[2020-11-25] MEDS: Aspirin 81 MG TAB.CHEW PO SCH ×2 (09:26→09:54)
[2020-11-25] MEDS: FLUoxetine 20 MG CAPSULE PO SCH (09:26)
[2020-11-25] MEDS: allopurinoL 100 MG TABLET PO SCH ×2 (09:26→09:55)
[2020-11-25] MEDS: Multivit/Ca/Min/Fe/FA 1 TAB TABLET PO SCH ×2 (09:26→09:53)
[2020-11-25] MEDS: Nicotine 14 MG PATCH.TD24 TD SCH ×2 (09:27→09:55)
[2020-11-25] MEDS: 0.9 % Sodium Chloride 500 ML IVC SCH (11:50)
[2020-11-25] MEDS: Budesonide/Formoterol 80/4.5 1 PUFF INH IH SCH ×2 (12:31→20:18)
[2020-11-25 12:32] LABS: ABG Base Excess 9 mEq/L (-2 to 3); ABG HCO3 32 mEq/L (21-27); ABG Oxygen Saturation 92 % (95-98); ABG PCO2 38 mmHg (35-45); ABG PH 7.53 pH Units (7.32-7.45); ABG PO2 57 mmHg (85-104); ABG TCO2 33 mEq/L (20-26)
[2020-11-25] MEDS ORDERED: Isovue-370 500 ML BOTTLE IVP ONE (12:39)
[2020-11-25] MEDS ORDERED: Ampicillin/Sulbactam 3,000 MG in 0.9 % Sodium Chloride Mini Bag 100 ML IVPB SCH (18:30)
[2020-11-25] MEDS: Ampicillin/Sulbactam 3,000 MG in 0.9 % Sodium Chloride Mini Bag 100 ML IVPB SCH (22:04)
[2020-11-25] MEDS: Metoprolol XL (24 HR) Succ 50 MG TAB.ER.24H PO SCH (22:06)
[2020-11-26] MEDS: Ipratropium/Albuterol Neb 3 ML IH SCH ×7 (00:21→23:22)
[2020-11-26 01:09] LABS: Hematocrit 27.8 % (35.3-44.9); Hemoglobin 8.5 g/dL (11.5-15.4); Mean Corpuscular HGB Conc 30.6 g/dL (31.6-35.5); Mean Corpuscular Volume 101.5 fL (83.0-100.0); Platelet Count 257 K/mcL (140-400); Red Blood Count 2.74 M/mcL (3.82-4.97); Red Cell Distribution Width 14.9 % (11.5-14.5); White Blood Count 8.8 K/mcL (4.3-11.1)
[2020-11-26 01:18] LABS: Bacteria,Urine Few per hpf (None-Few); Bilirubin,Urine Negative (Negative); Blood,Urine Large (Negative); Budding Yeast,Urine Moderate per hpf (None Seen); Clarity,Urine Turbid (Clear); Color,Urine Yellow (Yellow); Glucose,Urine (UA) Normal (Normal); Ketones,Urine Trace mg/dL (Negative); Leukocyte Esterase,Urine Large (Negative); Nitrite,Urine Negative (Negative); Protein,Urine >=300 mg/dL (Neg-Trace); RBC,Urine 50-100 per hpf (0-3); Specific Gravity,Urine > 1.030 (1.010-1.025); Squamous Epithelial Cell,Urine Few per hpf (None-Few); Urobilinogen,Urine Normal (Normal); WBC,Urine TNTC per hpf (0-3)
[2020-11-26 01:27] LABS: Phosphorous 2.7 mg/dL (2.7-4.5)
[2020-11-26 01:28] LABS: Calcium 8.3 mg/dL (8.6-10.3); Potassium 3.5 mEq/L (3.5-5.1)
[2020-11-26] MEDS: Pantoprazole 40 MG VIAL IVP SCH ×2 (06:20→17:37)
[2020-11-26] MEDS: Budesonide/Formoterol 80/4.5 1 PUFF INH IH SCH ×2 (07:20→19:48)
[2020-11-26] MEDS: Nicotine 14 MG PATCH.TD24 TD SCH (09:55)
[2020-11-26] MEDS: 0.9 % Sodium Chloride 500 ML IVC SCH (09:56)
[2020-11-26] MEDS: FLUoxetine 20 MG CAPSULE PO SCH (09:57)
[2020-11-26] MEDS: BuPROPion SR (12 HR) 150 MG TABLET PO SCH ×2 (09:57→20:25)
[2020-11-26] MEDS: Metoprolol XL (24 HR) Succ 50 MG TAB.ER.24H PO SCH ×2 (09:57→20:25)
[2020-11-26] MEDS: Multivit/Ca/Min/Fe/FA 1 TAB TABLET PO SCH (09:57)
[2020-11-26] MEDS: allopurinoL 100 MG TABLET PO SCH (09:57)
[2020-11-26] MEDS: QUEtiapine Fumarate 25 MG TABLET PO SCH ×2 (09:57→20:25)
[2020-11-26] MEDS ORDERED: Saline Nasal Spray 44 ML BOTTLE NS PRN (14:40)
[2020-11-26] MEDS: Ampicillin/Sulbactam 3,000 MG in 0.9 % Sodium Chloride Mini Bag 100 ML IVPB SCH (17:37)
[2020-11-27 02:35] LABS: Hematocrit 27.7 % (35.3-44.9); Hemoglobin 8.3 g/dL (11.5-15.4); Mean Corpuscular Hemoglobin 30.7 pg (28.0-33.3); Mean Corpuscular Volume 102.6 fL (83.0-100.0); Mean Platelet Volume 10.1 fL (9.4-12.4); Platelet Count 218 K/mcL (140-400); Red Cell Distribution Width 15.4 % (11.5-14.5); White Blood Count 7.7 K/mcL (4.3-11.1)
[2020-11-27 02:51] LABS: Calcium 8.1 mg/dL (8.6-10.3); Potassium 3.5 mEq/L (3.5-5.1)
[2020-11-27 03:15] LABS: Phosphorous 2.7 mg/dL (2.7-4.5)
[2020-11-27] MEDS: Ipratropium/Albuterol Neb 3 ML IH SCH ×6 (03:49→23:27)
[2020-11-27] MEDS: 0.9 % Sodium Chloride 500 ML IVC SCH (05:12)
[2020-11-27] MEDS: Pantoprazole 40 MG VIAL IVP SCH (05:12)
[2020-11-27 05:52] LABS: Adenovirus F 40/41 PCR Not detected (Not detect); Astrovirus PCR Not detected (Not detect); C.difficile Toxin A/B Gene PCR Not detected (Not detect); Campylobacter by PCR Not detected (Not detect); Cryptosporidium by PCR Not detected (Not detect); Cyclospora cayetanensis PCR Not detected (Not detect); E. coli O157 by PCR Not detected (Not detect); Entamoeba histolytica PCR Not detected (Not detect); Enteroaggregative E.coli(EAEC) Not detected (Not detect); Enteropathogenic E.coli(EPEC) Not detected (Not detect); Enterotoxigenic E.coli (ETEC) Not detected (Not detect); Giardia lamblia PCR Not detected (Not detect); Norovirus GI/GII PCR Not detected (Not detect); Plesiomonas shigelloides PCR Not detected (Not detect); Rotavirus A PCR Not detected (Not detect); Salmonella PCR Not detected (Not detect); Sapovirus PCR Not detected (Not detect); Shig/EnteroinvasiveE coli EIEC Not detected (Not detect); Shigalike tox-prod E coli STEC Not detected (Not detect); Vibrio PCR Not detected (Not detect); Vibrio cholerae PCR Not detected (Not detect); Yersinia enterocolitica PCR Not detected (Not detect)
[2020-11-27] MEDS: Ipratropium/Albuterol Neb 3 ML IH PRN (07:22)
[2020-11-27] MEDS: Budesonide/Formoterol 80/4.5 1 PUFF INH IH SCH ×2 (07:22→19:32)
[2020-11-27] MEDS: Aspirin 81 MG TAB.CHEW PO SCH (08:37)
[2020-11-27] MEDS: BuPROPion SR (12 HR) 150 MG TABLET PO SCH ×2 (08:37→20:45)
[2020-11-27] MEDS: Multivit/Ca/Min/Fe/FA 1 TAB TABLET PO SCH (08:37)
[2020-11-27] MEDS: Nicotine 14 MG PATCH.TD24 TD SCH (08:38)
[2020-11-27] MEDS: QUEtiapine Fumarate 25 MG TABLET PO SCH ×2 (08:38→20:44)
[2020-11-27] MEDS: FLUoxetine 20 MG CAPSULE PO SCH (08:39)
[2020-11-27] MEDS: Metoprolol XL (24 HR) Succ 50 MG TAB.ER.24H PO SCH ×2 (08:39→20:45)
[2020-11-27] MEDS: allopurinoL 100 MG TABLET PO SCH (08:39)
[2020-11-27] MEDS: Ampicillin/Sulbactam 3,000 MG in 0.9 % Sodium Chloride Mini Bag 100 ML IVPB SCH (16:26)
[2020-11-28] MEDS: Ipratropium/Albuterol Neb 3 ML IH SCH ×6 (03:28→23:23)
[2020-11-28 06:37] LABS: Hematocrit 26.9 % (35.3-44.9); Hemoglobin 8.6 g/dL (11.5-15.4); Mean Corpuscular Hemoglobin 32.2 pg (28.0-33.3); Mean Corpuscular Volume 100.7 fL (83.0-100.0); Mean Platelet Volume 10.2 fL (9.4-12.4); Platelet Count 181 K/mcL (140-400); Red Blood Count 2.67 M/mcL (3.82-4.97); Red Cell Distribution Width 15.4 % (11.5-14.5); White Blood Count 7.5 K/mcL (4.3-11.1)
[2020-11-28 06:57] LABS: Calcium 8.4 mg/dL (8.6-10.3); Potassium 3.5 mEq/L (3.5-5.1)
[2020-11-28 06:59] LABS: Magnesium 1.8 mg/dL (1.6-2.6); Phosphorous 3.2 mg/dL (2.7-4.5)
[2020-11-28] MEDS: Budesonide/Formoterol 80/4.5 1 PUFF INH IH SCH ×2 (07:33→19:35)
[2020-11-28] MEDS ORDERED: 0.9 % Sodium Chloride 250 ML IVC PRN (07:46)
[2020-11-28] MEDS ORDERED: *HR* Heparin 10,000 UNIT/10 ML VIAL IV PRN (07:46)
[2020-11-28] MEDS ORDERED: 0.9 % Sodium Chloride 1,000 ML PRIME SCH (08:00)
[2020-11-28] MEDS: FLUoxetine 20 MG CAPSULE PO SCH (08:28)
[2020-11-28] MEDS: Multivit/Ca/Min/Fe/FA 1 TAB TABLET PO SCH (08:28)
[2020-11-28] MEDS: Nicotine 14 MG PATCH.TD24 TD SCH (08:29)
[2020-11-28] MEDS: allopurinoL 100 MG TABLET PO SCH (08:29)
[2020-11-28] MEDS: Aspirin 81 MG TAB.CHEW PO SCH (08:29)
[2020-11-28] MEDS: BuPROPion SR (12 HR) 150 MG TABLET PO SCH ×2 (08:29→20:09)
[2020-11-28] MEDS: Metoprolol XL (24 HR) Succ 50 MG TAB.ER.24H PO SCH ×2 (12:24→20:09)
[2020-11-28] MEDS: Ampicillin/Sulbactam 3,000 MG in 0.9 % Sodium Chloride Mini Bag 100 ML IVPB SCH (17:51)
[2020-11-28] MEDS: QUEtiapine Fumarate 25 MG TABLET PO SCH (20:09)
[2020-11-28] MEDS: Ondansetron 4 MG/2 ML VIAL IVP PRN (20:20)
[2020-11-29 01:14] LABS: Hematocrit 27.5 % (35.3-44.9); Hemoglobin 8.5 g/dL (11.5-15.4); Mean Corpuscular HGB Conc 30.9 g/dL (31.6-35.5); Mean Corpuscular Volume 100.4 fL (83.0-100.0); Mean Platelet Volume 10.2 fL (9.4-12.4); Platelet Count 158 K/mcL (140-400); Red Blood Count 2.74 M/mcL (3.82-4.97); Red Cell Distribution Width 15.5 % (11.5-14.5); White Blood Count 8.1 K/mcL (4.3-11.1)
[2020-11-29 01:34] LABS: Magnesium 2.3 mg/dL (1.6-2.6); Phosphorous 3.1 mg/dL (2.7-4.5)
[2020-11-29 01:36] LABS: Calcium 8.3 mg/dL (8.6-10.3); Potassium 3.3 mEq/L (3.5-5.1)
[2020-11-29] MEDS: Ipratropium/Albuterol Neb 3 ML IH SCH ×6 (03:45→23:54)
[2020-11-29] MEDS: Budesonide/Formoterol 80/4.5 1 PUFF INH IH SCH ×2 (07:22→20:13)
[2020-11-29] MEDS ORDERED: Lidocaine/EPI 1:100k 1% 50 ML VIAL ONE (07:49)
[2020-11-29] MEDS ORDERED: Heparin 1,000 UNITS/500 mL 500 ML ONE (07:49)
[2020-11-29] MEDS ORDERED: *HR* Heparin 5,000 UNIT/ML VIAL ONE (08:49)
[2020-11-29] MEDS: Multivit/Ca/Min/Fe/FA 1 TAB TABLET PO SCH (09:54)
[2020-11-29] MEDS: Aspirin 81 MG TAB.CHEW PO SCH (09:54)
[2020-11-29] MEDS: FLUoxetine 20 MG CAPSULE PO SCH (09:54)
[2020-11-29] MEDS: BuPROPion SR (12 HR) 150 MG TABLET PO SCH ×2 (09:54→20:32)
[2020-11-29] MEDS: Metoprolol XL (24 HR) Succ 50 MG TAB.ER.24H PO SCH ×2 (09:54→20:32)
[2020-11-29] MEDS: allopurinoL 100 MG TABLET PO SCH (09:54)
[2020-11-29] MEDS: Nicotine 14 MG PATCH.TD24 TD SCH (09:59)
[2020-11-29] MEDS: Ampicillin/Sulbactam 3,000 MG in 0.9 % Sodium Chloride Mini Bag 100 ML IVPB SCH (17:38)
[2020-11-29] MEDS: Melatonin 3 MG TABLET PO PRN (20:32)
[2020-11-29] MEDS: QUEtiapine Fumarate 25 MG TABLET PO SCH (20:32)
[2020-11-30 03:13] LABS: Hematocrit 27.1 % (35.3-44.9); Hemoglobin 8.5 g/dL (11.5-15.4); Mean Corpuscular HGB Conc 31.4 g/dL (31.6-35.5); Mean Corpuscular Volume 101.9 fL (83.0-100.0); Mean Platelet Volume 10.8 fL (9.4-12.4); Platelet Count 182 K/mcL (140-400); Red Blood Count 2.66 M/mcL (3.82-4.97); Red Cell Distribution Width 15.7 % (11.5-14.5)
[2020-11-30 03:36] LABS: Calcium 8.3 mg/dL (8.6-10.3); Potassium 3.3 mEq/L (3.5-5.1)
[2020-11-30] MEDS: Ipratropium/Albuterol Neb 3 ML IH SCH ×5 (04:24→19:52)
[2020-11-30] MEDS ORDERED: 0.9 % Sodium Chloride 250 ML IVC PRN (07:12)
[2020-11-30] MEDS ORDERED: *HR* Heparin 10,000 UNIT/10 ML VIAL IV PRN (07:12)
[2020-11-30] MEDS ORDERED: 0.9 % Sodium Chloride 1,000 ML PRIME SCH (07:15)
[2020-11-30] MEDS: Budesonide/Formoterol 80/4.5 1 PUFF INH IH SCH ×2 (07:44→19:51)
[2020-11-30] MEDS: BuPROPion SR (12 HR) 150 MG TABLET PO SCH ×2 (12:16→22:08)
[2020-11-30] MEDS: Metoprolol XL (24 HR) Succ 50 MG TAB.ER.24H PO SCH ×2 (12:16→22:09)
[2020-11-30] MEDS: allopurinoL 100 MG TABLET PO SCH (12:16)
[2020-11-30] MEDS: FLUoxetine 20 MG CAPSULE PO SCH (12:16)
[2020-11-30] MEDS: Nicotine 14 MG PATCH.TD24 TD SCH (12:16)
[2020-11-30] MEDS: Multivit/Ca/Min/Fe/FA 1 TAB TABLET PO SCH (12:16)
[2020-11-30] MEDS: Aspirin 81 MG TAB.CHEW PO SCH (12:16)
[2020-11-30] MEDS: Ipratropium/Albuterol Neb 3 ML IH PRN (15:56)
[2020-11-30] MEDS: Ampicillin/Sulbactam 3,000 MG in 0.9 % Sodium Chloride Mini Bag 100 ML IVPB SCH (17:28)
[2020-11-30] MEDS: QUEtiapine Fumarate 25 MG TABLET PO SCH (22:09)
[2020-11-30] MEDS: Melatonin 3 MG TABLET PO PRN (22:09)
[2020-12-01] MEDS: Ipratropium/Albuterol Neb 3 ML IH SCH ×5 (00:05→16:17)
[2020-12-01 05:49] LABS: Hematocrit 30.8 % (35.3-44.9); Hemoglobin 9.6 g/dL (11.5-15.4); Mean Corpuscular HGB Conc 31.2 g/dL (31.6-35.5); Mean Corpuscular Hemoglobin 31.5 pg (28.0-33.3); Mean Platelet Volume 10.7 fL (9.4-12.4); Platelet Count 192 K/mcL (140-400); Red Blood Count 3.05 M/mcL (3.82-4.97); Red Cell Distribution Width 15.6 % (11.5-14.5); White Blood Count 11.6 K/mcL (4.3-11.1)
[2020-12-01] MEDS: Budesonide/Formoterol 80/4.5 1 PUFF INH IH SCH (07:38)
[2020-12-01 07:57] LABS: Calcium 8.6 mg/dL (8.6-10.3); Potassium 3.4 mEq/L (3.5-5.1)
[2020-12-01] MEDS: Multivit/Ca/Min/Fe/FA 1 TAB TABLET PO SCH (10:20)
[2020-12-01] MEDS: Aspirin 81 MG TAB.CHEW PO SCH (10:21)
[2020-12-01] MEDS: Nicotine 14 MG PATCH.TD24 TD SCH (10:21)
[2020-12-01] MEDS: FLUoxetine 20 MG CAPSULE PO SCH (10:21)
[2020-12-01] MEDS: Metoprolol XL (24 HR) Succ 50 MG TAB.ER.24H PO SCH (10:21)
[2020-12-01] MEDS: BuPROPion SR (12 HR) 150 MG TABLET PO SCH (10:21)
[2020-12-01 14:52] VITALS: BP 143/87
== END 2020-12-01 16:50 | DRG 480 ==
LOC: 3NENU → SUATTDRO 17:44 → 3NENU 11-22 08:38 → 2NENU 11-25 20:15
PROVIDERS: ADMIT Student in an Organized Health Care Education/Training Program; ATTEND Internal Medicine
PROC: IRPERMA (2020-11-29 12:00)